=== PATIENT | female | born 1970 | race Caucasian/White ===

== ENCOUNTER 2017-04-04 21:36 | Observation (INO) | payer MEDICAID, OTHER ==
[~2017-04-04] VITALS: Ht 154.9 cm; Wt 66.3 kg
[~2017-04-04 21:36] MED LIST: ASPI81TA45 PO; FIORIC PO; NAPR-729 PO; TAMO10TA2 PO; TRAM-388 PO; TRAM50TA PO; ZOFR4TAB3 SL
[2017-04-04 21:46] VITALS: BP 144/80; PULSE 83; RESP 18; TEMP 98.3; O2SAT 96
[2017-04-04] MEDS ORDERED: SODIUM CHLORIDE 0.9% FLUSH 10 ML FLUSH IVF PRN (22:00)
[2017-04-04] MEDS ORDERED: ASPIRIN 81 MG CHEW TAB PO ONE (22:00)
--- NOTE | 2017-04-04 22:03 | PD ---
HPI Chief Complaint: Chest Pain Time Seen by Provider: 21:40 Travel History International Travel<30 days: No Contact w/Intl Traveler<30days: No Traveled to known affect area: No History of Present Illness HPI The patient is a 46-year-old female that has no history of coronary artery disease but does complain of chest pain for about 2 hours. She apparently had epigastric pain that was suspicious for cardiac chest pain when she went into [facility] in [facility] Monday. They wanted to do a stress test on her but she signed out AMA. Her chest pain is pleuritic and both sharp and pressure. It starts behind her left breast and goes up to the left shoulder and radiates up the left neck. It is associated with diaphoresis and nausea and she does feel slight shortness of breath. She does have a history of deep vein thrombosis in the right leg and did have an inferior vena cava filter. This filter broke down and they had to recover a portion of it which ended up in her right lung. It is no longer a functioning IVC filter. She denies any hemoptysis or fever. PFSH Past Medical History Cancer: Yes (breast) Chemotherapy: Yes (on tamoxifen) Diminished Hearing: No Deep Vein Thrombosis: Yes Kidney Stones: Yes Immunizations Current: Yes Radiation Therapy: Yes Tetanus Vaccination: < 5 Years Influenza Vaccination: No ?: Not LMP: 03/15/2017 Menopausal: Yes Past Surgical History Appendectomy: Yes Cholecystectomy: Yes Genitourinary Surgery: Yes (stents placed/removed ) Other Surgery: Yes (IVC FILTER - RENAL STENT) Social History Alcohol Use: No Tobacco Use: Yes (1/2 ppd) Substance Use: No Allergies-Medications (Allergen,Severity, Reaction): Coded Allergies: Compazine (Verified Allergy, Severe, Anaphylaxis, 04/04/17) Reglan (Verified Allergy, Severe, Anaphylaxis, 04/04/17) Toradol (Verified Allergy, Severe, Anaphylaxis, 04/04/17) Reported Meds & Prescriptions Reported Meds & Active Scripts Active Review of Systems Except as stated in HPI: all other systems reviewed are Neg Physical Exam Narrative GENERAL: The patient is alert, oriented 3 in moderate apparent distress with her chest pain. Her vital signs show blood pressure 144/80 but are otherwise normal. SKIN: Focused skin assessment warm/dry. No skin rash is seen. HEAD: Atraumatic. Normocephalic. EYES: Pupils equal and round. No scleral icterus. No injection or drainage. ENT: No nasal bleeding or discharge. Mucous membranes pink and moist. NECK: Trachea midline. No JVD. CARDIOVASCULAR: Regular rate and rhythm. No murmur appreciated. I cannot reproduce the chest pain by pressing on the chest wall. RESPIRATORY: No accessory muscle use. Clear to auscultation. Breath sounds equal bilaterally. GASTROINTESTINAL: Abdomen soft, non-tender, nondistended. Hepatic and splenic margins not palpable. MUSCULOSKELETAL: No obvious deformities. No clubbing. No cyanosis. No edema. NEUROLOGICAL: Awake and alert. No obvious cranial nerve deficits. Motor grossly within normal limits. Normal speech. PSYCHIATRIC: Appropriate mood and affect; insight and judgment normal. Data Data Last Documented VS Vital Signs Date Time Temp Pulse Resp B/P Pulse Ox O2 Delivery O2 Flow Rate FiO2 04/04/17 22:20 69 18 116/70 99 Room Air 04/04/17 21:46 98.3 Orders Electrocardiogram (04/04/17 21:56) B-Type Natriuretic Peptide (04/04/17 21:56) Ckmb (Isoenzyme) Profile (04/04/17 21:56) Complete Blood Count With Diff (04/04/17 21:56) Comprehensive Metabolic Panel (04/04/17 21:56) D-Dimer (04/04/17 21:56) Magnesium (Mg) (04/04/17 21:56) Prothrombin Time / Inr (Pt) (04/04/17 21:56) Act Partial Throm Time (Ptt) (04/04/17 21:56) Troponin I (04/04/17 21:56) Ecg Monitoring (04/04/17 21:56) Bilateral Bp Monitoring (04/04/17 21:56) Iv Access Insert/Monitor (04/04/17 21:56) Oximetry (04/04/17 21:56) Oxygen Administration (04/04/17 21:56) Aspirin Chew (Aspirin Chew) (04/04/17 22:00) Sodium Chloride 0.9% Flush (Ns Flush) (04/04/17 22:00) Nitroglycerin Sl (Nitrostat Sl) (04/04/17 22:00) Chest, Pa & Lat (04/04/17 21:56) Potassium Chloride (Kcl) (04/04/17 23:45) Labs Laboratory Tests Test 04/04/17 22:32 White Blood Count 8.1 TH/MM3 Red Blood Count 3.74 MIL/MM3 Hemoglobin 11.9 GM/DL Hematocrit 35.5 % Mean Corpuscular Volume 95.0 FL Mean Corpuscular Hemoglobin 31.8 PG Mean Corpuscular Hemoglobin 33.5 % Concent Red Cell Distribution Width 13.3 % Platelet Count 326 TH/MM3 Mean Platelet Volume 7.1 FL Neutrophils (%) (Auto) 60.6 % Lymphocytes (%) (Auto) 29.5 % Monocytes (%) (Auto) 6.6 % Eosinophils (%) (Auto) 2.7 % Basophils (%) (Auto) 0.6 % Neutrophils # (Auto) 5.0 TH/MM3 Lymphocytes # (Auto) 2.4 TH/MM3 Monocytes # (Auto) 0.5 TH/MM3 Eosinophils # (Auto) 0.2 TH/MM3 Basophils # (Auto) 0.0 TH/MM3 CBC Comment DIFF FINAL Differential Comment Prothrombin Time 10.8 SEC Prothromb Time International 1.0 RATIO Ratio Activated Partial 26.7 SEC Thromboplast Time D-Dimer Quantitative (PE/DVT) 0.50 MG/L FEU Sodium Level 144 MEQ/L Potassium Level 3.2 MEQ/L Chloride Level 109 MEQ/L Carbon Dioxide Level 26.5 MEQ/L Anion Gap 9 MEQ/L Blood Urea Nitrogen 7 MG/DL Creatinine 0.86 MG/DL Estimat Glomerular Filtration 70 ML/MIN Rate Random Glucose 102 MG/DL Calcium Level 8.8 MG/DL Magnesium Level 2.0 MG/DL Total Bilirubin 0.2 MG/DL Aspartate Amino Transf 15 U/L (AST/SGOT) Alanine Aminotransferase 22 U/L (ALT/SGPT) Alkaline Phosphatase 49 U/L Total Creatine Kinase 44 U/L Troponin I LESS THAN 0.02 NG/ML B-Type Natriuretic Peptide 23 PG/ML Total Protein 6.4 GM/DL Albumin 3.4 GM/DL MDM Medical Decision Making Medical Screen Exam Complete: Yes Emergency Medical Condition: Yes Medical Record Reviewed: Yes Interpretation(s) The EKG shows sinus rhythm with a rate of 80 and is completely normal. The chest x-ray is normal. The complete metabolic profile shows potassium 3.2 but is otherwise normal. The cardiac enzymes are normal and the BNP is normal. The d-dimer is normal. Differential Diagnosis Pleurisy, chest wall pain, esophageal pain, gastrointestinal pain, acute coronary syndrome, pulmonary embolus Narrative Course The patient appears to have pleurisy. She also has a different type of pain, a pressure pain and needs to have a stress test. She has not had a stress test before. The patient will be admitted to the chest pain center for a stress test. Procedures Procedure Narrative The nurses were unable to start an IV so I started an external jugular IV on the left. Diagnosis Primary Impression: Chest pain of unknown etiology Albin Ocampo MD Apr 04, 2017 22:03
[2017-04-04] MEDS: NITROGLYCERIN 0.4 MG SL 25 TABS/BTL SL SCH ×3 (22:05→22:10)
[2017-04-04 22:20] VITALS: BP 116/70; PULSE 69; RESP 18; O2SAT 99
[2017-04-04 22:44] LABS: BASOPHIL % 0.6 % (0.0-2.0); EOSINOPHIL # 0.2 TH/MM3 (0-0.4); EOSINOPHIL % 2.7 % (0.0-4.0); HEMATOCRIT 35.5 % (35.0-46.0); HEMO FLAGS DIFF FINAL; LYMPH % 29.5 % (9.0-44.0); LYMPHOCYTE # 2.4 TH/MM3 (1.0-4.8); MEAN CORPUSCULAR HEMOGLOBIN 31.8 PG (27.0-34.0); MEAN CORPUSCULAR HGB CONC 33.5 % (32.0-36.0); MONO % 6.6 % (0.0-8.0); NEUT % 60.6 % (16.0-70.0); PLATELET COUNT 326 TH/MM3 (150-450); RED BLOOD COUNT 3.74 MIL/MM3 (4.00-5.30); RED CELL DISTRIBUTION WIDTH 13.3 % (11.6-17.2); WHITE BLOOD COUNT 8.1 TH/MM3 (4.0-11.0)
[2017-04-04 22:56] LABS: CHLORIDE 109 MEQ/L (98-107); POTASSIUM 3.2 MEQ/L (3.5-5.1); SODIUM (NA) 144 MEQ/L (136-145)
[2017-04-04 22:59] LABS: ANION GAP 9 MEQ/L (5-15); BICARBONATE 26.5 MEQ/L (21.0-32.0); BLOOD UREA NITROGEN 7 MG/DL (7-18)
[2017-04-04 23:01] LABS: APTT (PATIENT) 26.7 SEC (24.3-30.1); PROTHROMBIN TIME - PATIENT 10.8 SEC (9.8-11.6)
[2017-04-04 23:02] LABS: ALT (GPT) 22 U/L (10-53); AST (GOT) 15 U/L (15-37)
[2017-04-04 23:03] LABS: GLOMERULAR FILTRATION RATE 70 ML/MIN (>89)
[2017-04-04 23:04] LABS: TOTAL BILIRUBIN ADULT 0.2 MG/DL (0.2-1.0)
[2017-04-04 23:05] LABS: ALKALINE PHOSPHATASE 49 U/L (45-117)
--- NOTE | 2017-04-04 23:05 | RADRPT ---
EXAM DATE/TIME: 04/04/2017 22:43 [facility] COMPARISON: No previous studies available for comparison. INDICATIONS : Patient states chest pain started two hours ago. MEDICAL HISTORY : Hypertension. SURGICAL HISTORY : None. ENCOUNTER: Initial ACUITY: 1 day PAIN SCORE: 10/10 LOCATION: Bilateral chest FINDINGS: PA and lateral views of the chest demonstrate the lungs to be symmetrically aerated without evidence of mass, infiltrate or effusion. The cardiomediastinal contours are unremarkable. Osseous structure s are intact. Clips are seen in the right upper quadrant. CONCLUSION: Normal examination. Lacho Saavedra MD on April 04, 2017 at 23:03 Board Certified Radiologist. This report was verified electronically.
[2017-04-04 23:06] LABS: CREATINE KINASE 44 U/L (26-192)
[2017-04-04] MEDS ORDERED: MORPHINE SULFATE 4 MG/ML INJ IV PUSH ONE (23:45)
[2017-04-04] MEDS ORDERED: POTASSIUM CHLORIDE 20 MEQ CONTROLLED RELEASE TAB PO ONE (23:45)
[2017-04-04] MEDS ORDERED: ONDANSETRON HCL 4 MG/2 ML VIAL IV ONE (23:45)
[2017-04-04] MEDS ORDERED: MORPHINE SULFATE 8 MG/ML INJ IV PUSH ONE (23:45)
[2017-04-04 23:50] VITALS: BP 99/54; PULSE 59; RESP 16; O2SAT 99
[2017-04-05] VITALS (7 sets, daily range): BP systolic 98–116; BP diastolic 54–76; PULSE 52–65; RESP 16–18; TEMP 97.2–97.4; O2SAT 92–99
[2017-04-05] MEDS ORDERED: SODIUM CHLORIDE 0.9% FLUSH 10 ML FLUSH IV FLUSH PRN
[2017-04-05] MEDS ORDERED: ACETAMINOPHEN 500 MG CPLT PO PRN
[2017-04-05] MEDS ORDERED: ONDANSETRON HCL 4 MG/2 ML VIAL IV PRN
[2017-04-05] MEDS ORDERED: ACETAMINOPHEN/HYDROcodone 325 MG/7.5 MG TAB PO PRN
[2017-04-05] MEDS ORDERED: MORPHINE SULFATE 4 MG/ML INJ IV PRN
[2017-04-05] MEDS ORDERED: LORazepam 2 MG/ML VIAL IV PUSH ONE (04:15)
[2017-04-05] MEDS ORDERED: HYDROmorphone HCL PF 1 MG/ML VIAL IV PUSH ONE (04:15)
[2017-04-05 04:57] LABS: CREATINE KINASE 85 U/L (26-192)
[2017-04-05 08:29] LABS: CREATINE KINASE 44 U/L (26-192)
[2017-04-05] MEDS: MORPHINE SULFATE 8 MG/ML INJ IV PUSH PRN ×2 (09:00→12:34)
[2017-04-05] MEDS ORDERED: SODIUM CHLORIDE 0.9% FLUSH 10 ML FLUSH SCH (09:00)
--- NOTE | 2017-04-05 09:16 | EKG ---
Date Performed: 04/04/2017 Time Performed: 23:58:05 PTAGE: 46 years EKG: Sinus rhythm NONSPECIFIC T-WAVE ABNORMALITY BORDERLINE ECG PREVIOUS TRACING : 04/04/2017 21.43 DOCTOR: Carl Oconnor Interpretating Date/Time 04/05/2017 09:15:00
--- NOTE | 2017-04-05 09:26 | EKG ---
Date Performed: 04/04/2017 Time Performed: 21:43:45 PTAGE: 46 years EKG: Sinus rhythm NORMAL ECG NO PREVIOUS TRACING DOCTOR: Carl Oconnor Interpretating Date/Time 04/05/2017 09:25:32
--- NOTE | 2017-04-05 10:51 | EKG ---
Date Performed: 04/05/2017 Time Performed: 03:05:48 PTAGE: 46 years EKG: SINUS BRADYCARDIA LOW QRS VOLTAGE IN PRECORDIAL LEADS BORDERLINE ECG PREVIOUS TRACING : 04/04/2017 23.58 DOCTOR: Carl Oconnor Interpretating Date/Time 04/05/2017 10:50:20
[2017-04-05 10:54] LABS: BLOOD, URINE LARGE (NEG); GLUCOSE,URINE NEG (NEG); KETONE, URINE NEG (NEG); NITRITE,URINE NEG (NEG); PH, URINE 5.5 (5.0-8.5)
[2017-04-05 11:10] LABS: METHOD OF COLLECTION CLEAN CATCH; URINE COLOR LIGHT-BROWN (YELLW/STRAW)
[2017-04-05 11:12] LABS: RBC, URINE INNUM /hpf (0-3)
[2017-04-05 11:13] LABS: BACTERIA, URINE FEW /hpf; COMMENT (UR) CULTURE INDICATED; CULTURE IF INDICATED CULTURE INDICATED
--- NOTE | 2017-04-05 11:49 | HHI.HP ---
HPI Primary Care Physician Unknown Admission Diagnosis chest pain unknown etiology Diagnoses: Chief Complaint: Left-sided chest pain History of Present Illness Patient is a 46-year-old female with an history of breast cancer who is coming to the hospital complaining of left-sided chest discomfort which she describes as "pulling". It is radiating into the shoulder and into her back and has been going on for 4 days, worse with movement and is associated with diaphoresis and nausea. Patient does feel some shortness of breath. She says she has had no relief from any of her symptoms other than with IV morphine. Patient was in the emergency room several days ago at [facility] and recommended for stress test which she refused and signed out against we'll advise. Here she has been tearful and complaining that no one has been evaluating her while the doctor and the nurses are in the room evaluating her. The patient had an EKG which shows normal sinus rhythm and sensory is normal. I did review both the chest x-ray the EKG. This chest pain is not on exam. For these as the patient was admitted for observation of chest pain center Review of Systems Constitutional: DENIES: Diaphoretic episodes, Fatigue, Fever, Weight gain, Weight loss, Chills, Dizziness, Change in appetite, Night Sweats Endocrine: DENIES: Abnorml menstrual pattern, Heat/cold intolerance, Polydipsia , Polyuria, Polyphagia Eyes: DENIES: Blurred vision, Diplopia, Eye inflammation, Eye pain, Vision loss , Photosensitivity, Double Vision Ears, nose, mouth, throat: DENIES: Tinnitus, Hearing loss, Vertigo, Nasal discharge, Oral lesions, Throat pain, Hoarseness, Ear Pain, Running Nose, Epistaxis, Sinus Pain, Toothache, Odynophagia Respiratory: DENIES: Apneas, Cough, Snoring, Wheezing, Hemoptysis, Sputum production, Shortness of breath Cardiovascular: COMPLAINS OF: Chest pain, Palpitations, Dyspnea on Exertion Gastrointestinal: DENIES: Abdominal pain, Black stools, Bloody stools, Constipation, Diarrhea, Nausea, Vomiting, Difficulty Swallowing, Anorexia Genitourinary: COMPLAINS OF: Hematuria, DENIES: Abnormal vaginal bleeding, Dysmenorrhea, Dyspareunia, Sexual dysfunction, Urinary frequency, Urinary incontinence, Urgency, Dysuria, Nocturia, Vaginal discharge Musculoskeletal: DENIES: Joint pain, Muscle aches, Stiffness, Joint Swelling, Back pain, Neck pain Integumentary: DENIES: Abnormal pigmentation, Pruritus, Rash, Nail changes, Breast masses, Breast skin changes, Nipple discharge Hematologic/lymphatic: DENIES: Bruising, Lymphadenopathy Immunologic/allergic: DENIES: Eczema, Urticaria Neurologic: DENIES: Abnormal gait, Headache, Localized weakness, Paresthesias, Seizures, Speech Problems, Tremor, Poor Balance Psychiatric: COMPLAINS OF: Anxiety, DENIES: Confusion, Mood changes, Depression, Hallucinations, Agitation, Suicidal Ideation, Homicidal Ideation, Delusions Past Family Social History Past Medical History Breast cancer DVT Kidney stones Past Surgical History . IVC filter Reported Medications Reviewed in the medical record, denies Allergies: Coded Allergies: Compazine (Verified Allergy, Severe, Anaphylaxis, 04/04/17) Reglan (Verified Allergy, Severe, Anaphylaxis, 04/04/17) Toradol (Verified Allergy, Severe, Anaphylaxis, 04/04/17) Active Ordered Medications Reviewed in the medical record Family History Family history of hypertension Social History No alcohol dependency, smokes half a pack a day, Physical Exam Vital Signs Vital Signs Date Time Temp Pulse Resp B/P Pulse Ox O2 Delivery O2 Flow Rate FiO2 04/05/17 10:33 20 04/05/17 10:02 94 21 04/05/17 08:00 97.2 59 16 98/54 92 04/05/17 01:13 55 04/05/17 01:00 97.4 52 18 112/76 93 04/05/17 00:12 99 21 04/05/17 00:02 16 04/04/17 23:50 59 16 99/54 99 Room Air 04/04/17 22:20 69 18 116/70 99 Room Air 04/04/17 22:20 69 18 116/70 99 Room Air 04/04/17 22:11 16 04/04/17 21:52 83 18 96 Room Air 04/04/17 21:46 98.3 83 18 144/80 96 Physical Exam GENERAL: This is a well-nourished, well-developed patient, tearful and complaining of chest pain SKIN: No rashes, ecchymoses or lesions. Cool and dry. HEAD: Atraumatic. Normocephalic. No temporal or scalp tenderness. EYES: Pupils equal round and reactive. Extraocular motions intact. No scleral icterus. No injection or drainage. ENT: Nose without bleeding, purulent drainage or septal hematoma. Throat without erythema, tonsillar hypertrophy or exudate. Uvula midline. Airway patent. NECK: Trachea midline. No JVD or lymphadenopathy. Supple, nontender, no meningeal signs. CARDIOVASCULAR: Regular rate and rhythm without murmurs, gallops, or rubs. RESPIRATORY: Clear to auscultation. Breath sounds equal bilaterally. No wheezes , rales, or rhonchi. GASTROINTESTINAL: Abdomen soft, non-tender, nondistended. No hepato-splenomegaly , or palpable masses. No guarding. MUSCULOSKELETAL: Extremities without clubbing, cyanosis, or edema. No joint tenderness, effusion, or edema noted. No calf tenderness. Negative Homans sign bilaterally. NEUROLOGICAL: Awake and alert. Cranial nerves II through XII intact. Motor and sensory grossly within normal limits. Five out of 5 muscle strength in all muscle groups. Normal speech. Laboratory Laboratory Tests Test 04/04/17 04/05/17 04/05/17 04/05/17 22:32 02:35 07:30 10:30 White Blood Count 8.1 Red Blood Count 3.74 Hemoglobin 11.9 Hematocrit 35.5 Mean Corpuscular Volume 95.0 Mean Corpuscular Hemoglobin 31.8 Mean Corpuscular Hemoglobin 33.5 Concent Red Cell Distribution Width 13.3 Platelet Count 326 Mean Platelet Volume 7.1 Neutrophils (%) (Auto) 60.6 Lymphocytes (%) (Auto) 29.5 Monocytes (%) (Auto) 6.6 Eosinophils (%) (Auto) 2.7 Basophils (%) (Auto) 0.6 Neutrophils # (Auto) 5.0 Lymphocytes # (Auto) 2.4 Monocytes # (Auto) 0.5 Eosinophils # (Auto) 0.2 Basophils # (Auto) 0.0 CBC Comment DIFF FINAL Differential Comment Prothrombin Time 10.8 Prothromb Time International 1.0 Ratio Activated Partial 26.7 Thromboplast Time D-Dimer Quantitative (PE/DVT) 0.50 Sodium Level 144 Potassium Level 3.2 Chloride Level 109 Carbon Dioxide Level 26.5 Anion Gap 9 Blood Urea Nitrogen 7 Creatinine 0.86 Estimat Glomerular Filtration 70 Rate Random Glucose 102 Calcium Level 8.8 Magnesium Level 2.0 Total Bilirubin 0.2 Aspartate Amino Transf 15 (AST/SGOT) Alanine Aminotransferase 22 (ALT/SGPT) Alkaline Phosphatase 49 Total Creatine Kinase 44 85 44 Troponin I LESS THAN 0.02 LESS THAN 0.02 LESS THAN 0.02 B-Type Natriuretic Peptide 23 Total Protein 6.4 Albumin 3.4 Beta HCG, Qualitative LESS THAN 1 Urine Collection Type CLEAN CATCH Urine Color LIGHT-BROWN Urine Turbidity CLOUDY Urine pH 5.5 Urine Specific Orange 1.020 Urine Protein TRACE Urine Glucose (UA) NEG Urine Ketones NEG Urine Occult Blood LARGE Urine Nitrite NEG Urine Bilirubin NEG Urine Leukocyte Esterase TRACE Urine RBC INNUM Urine WBC 9-14 Urine Squamous Epithelial 6-8 Cells Urine Bacteria FEW Microscopic Urinalysis Comment CULTURE INDICATED Date/Time Procedure Status Source Growth 04/05/17 10:30 Urine Culture Received Urine Clean Catch Pending Result Diagram: 04/04/172 04/04/172231 Imaging Last Impressions Chest X-Ray 04/04/172155 Signed Impressions: Service Date/Time: Tuesday, April 04, 2017 22:43 - CONCLUSION: Normal examination. Lacho Saavedra MD Assessment and Plan Problem List: (1) Chest pain of unknown etiology ICD Code: R07.89 Status: Acute Plan: Likely noncardiac. EKG unremarkable for acute cardiac injury on my review Follow up stress test Continue with pain control and risk assessment Continue telemetry, currently no events Follow-up CT abdomen pelvis and chest to rule out pulmonary embolism and stone versus GI etiology of atypical chest pain Add Protonix (2) UTI (urinary tract infection) ICD Code: N39.0 Status: Acute Plan: Continue IV Rocephin, rule out stone (3) Hypokalemia ICD Code: E87.6 Status: Acute Plan: Replace and follow trend Assessment and Plan Plan of care determined by Hospital course Code Status full code Maribel Sanchez MD Apr 05, 2017 11:49
[2017-04-05 11:51] LABS: POTASSIUM 3.8 MEQ/L (3.5-5.1)
[2017-04-05 11:54] LABS: BICARBONATE 26.9 MEQ/L (21.0-32.0)
[2017-04-05] MEDS ORDERED: PANTOPRAZOLE SOD 40 MG DELAYED RELEASE TAB PO SCH (12:00)
[2017-04-05] MEDS ORDERED: cefTRIAXone INJ 1,000 MG in SODIUM CHLORIDE 0.9% INJ 100 ML IV SCH (12:00)
[2017-04-05] MEDS ORDERED: IOHEXOL 350 MG/ML 10 ML VIAL (for RAD DIAG) IV ONE (13:04)
--- NOTE | 2017-04-05 13:18 | RADRPT ---
EXAM DATE/TIME: 04/05/2017 12:37 [facility] COMPARISON: No previous studies available for comparison. INDICATIONS : Left chest pain. Short of breath. IV CONTRAST: 75 cc Omnipaque 350 (iohexol) IV RADIATION DOSE: 5.05 CTDIvol (mGy) MEDICAL HISTORY : Carcinoma, breast. Renal calculi. Deep venous thrombosis. SURGICAL HISTORY : Appendectomy. Cholecystectomy. ENCOUNTER: Initial ACUITY: 4 - 6 days PAIN SCALE: 9/10 LOCATION: Left chest TECHNIQUE: Volumetric scanning of the chest was performed using a pulmonary embolism protocol MIP images were re constructed. Using automated exposure control and adjustment of the mA and/or kV according to patien t size, radiation dose was kept as low as reasonably achievable to obtain optimal diagnostic quality images. DICOM format image data is available electronically for review and comparison. FINDINGS: PULMONARY ARTERIES: No filling defects are seen in the pulmonary arteries through the segmental level. LUNGS: A few mild scattered interstitial infiltrates are noted in both posterior lower lungs. PLEURAE: There is no pleural thickening or pleural effusion. MEDIASTINUM: There is good visualization of the great vessels of the middle mediastinum. No evidence of mediastin al or hilar adenopathy/mass. MUSCULOSKELETAL: Within normal limits for patient age. MISCELLANEOUS: The visualized upper abdominal organs demonstrate no acute abnormality. There does appear to be a sub centimeter cyst in the left lobe of the liver. There may be a few tiny nodules in the thyroid gland. CONCLUSION: 1. No evidence of pulmonary embolism. 2. Mild scattered interstitial infiltrates in both lung bases. Adan Norris MD on April 05, 2017 at 13:13 Board Certified Radiologist. This report was verified electronically.
[2017-04-05] MEDS ORDERED: REGADENOSON INJ 0.4 MG/5 ML SYR IV ONE (13:20)
--- NOTE | 2017-04-05 13:50 | RADRPT ---
EXAM DATE/TIME: 04/05/2017 12:37 [facility] COMPARISON: CT ABDOMEN & PELVIS W/O CONTRAST, May 21, 2015, 8:04. INDICATIONS : Left abdominal pain. Evaluate for renal stone. ORAL CONTRAST: No oral contrast ingested. RADIATION DOSE: 9.95 CTDIvol (mGy) MEDICAL HISTORY : Carcinoma, breast. Renal calculi. Deep venous thrombosis. SURGICAL HISTORY : Appendectomy. Cholecystectomy. ENCOUNTER: Initial ACUITY: 4 - 6 days PAIN SCALE: 7/10 LOCATION: Left abdomen TECHNIQUE: Volumetric scanning of the abdomen and pelvis was performed. Using automated exposure control and ad justment of the mA and/or kV according to patient size, radiation dose was kept as low as reasonably achievable to obtain optimal diagnostic quality images. DICOM format image data is available electro nically for review and comparison. The lack of IV contrast limits the diagnosis for certain organ pa thology. FINDINGS: LOWER LUNGS: The visualized lower lungs are clear. LIVER: Homogeneous density without lesion. There is no dilation of the biliary tree. No gallbladder, surgi sunshine removed. There is a stable 1.3 cm left hepatic cyst.. SPLEEN: Normal size without lesion. PANCREAS: Within normal limits. KIDNEYS: Normal in size and shape. There is no mass, stone, or hydronephrosis. ADRENAL GLANDS: Stable small adrenal adenomas. No significant change. VASCULAR: There is no aortic aneurysm. IVC filter in place. No change BOWEL/MESENTERY: The stomach, small bowel, and colon demonstrate no acute abnormality. There is no free intraperitone al air or fluid. ABDOMINAL WALL: Within normal limits. RETROPERITONEUM: There is no lymphadenopathy. BLADDER: No wall thickening or mass. REPRODUCTIVE: Within normal limits. INGUINAL: There is no lymphadenopathy or hernia. MUSCULOSKELETAL: Within normal limits for patient age. CONCLUSION: 1. No evidence of calcified renal stones or hydronephrosis. 2. No new or significant changes compared to the prior exam. 3. Stable 1.3 cm left hepatic cyst. 4. Stable bilateral tiny adrenal adenomas. Adan Norris MD on April 05, 2017 at 13:42 Board Certified Radiologist. This report was verified electronically.
--- NOTE | 2017-04-05 14:37 | RADRPT ---
EXAM DATE/TIME: 04/05/2017 13:12 [facility] COMPARISON: No previous studies available for comparison. INDICATIONS : Mid chest pain with shortness of breath, nausea and diaphoresis for one day. Angina. DOSE: 26.1 mCi Tc99m Myoview at stress. 8.7 mCi Tc99m Myoview at rest. 0.4 mg Lexiscan STRESS SYMPTOMS: Chest pressure. EJECTION FRACTION: 67% MEDICAL HISTORY : Carcinoma, breast. SURGICAL HISTORY : Appendectomy. Cholecystectomy. ENCOUNTER: Initial ACUITY: 1 day PAIN SCALE: 6/10 LOCATION: Midsternal chest TECHNIQUE: The patient underwent pharmacologic stress with infusion of prescribed dose. Continuous ECG tracing was monitored during stress. Gated SPECT imaging was performed after stress and conventional SPECT i maging was performed at rest. The examination was performed on a SPECT/CT scanner, both attenuation and non-corrected datasets were reviewed. FINDINGS: DISTRIBUTION: The maximum perfused segment at stress is in the septal wall. PERFUSION STUDY: The pattern of perfusion at stress is within normal limits. There is however a fixed defect involving the apex on the stress and rest images. GATED STUDY: There is intact wall motion and thickening without hypokinetic or dyskinetic segments. CONCLUSION: 1. Fixed defect involving the apex on the rest and stress images. 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 2. No definite ischemic myocardial changes are demonstrated. RISK CATEGORY: low Adan Norris MD on April 05, 2017 at 14:32 Board Certified Radiologist. This report was verified electronically.
[2017-04-05] MEDS ORDERED: INDO50CA PO (15:01)
[2017-04-05] MEDS ORDERED: CIPR-9 PO (15:01)
--- NOTE | 2017-04-05 15:01 | HHI.DCPOC ---
Discharge Care Plan Diagnosis: (1) Chest pain of unknown etiology (2) UTI (urinary tract infection) Goals to Promote Your Health * To prevent worsening of your condition and complications * To maintain your health at the optimal level Directions to Meet Your Goals Take your medications as prescribed Follow your dietary instruction Follow activity as directed Keep your appointments as scheduled Take your immunizations and boosters as scheduled If your symptoms worsen call your PCP, if no PCP go to Urgent Care Center or Emergency Room Smoking is Dangerous to Your Health. Avoid second hand smoke Call the 24-hour hour crisis hotline for domestic abuse at James Ocampo Apr 05, 2017 15:01
--- NOTE | 2017-04-07 13:25 | TR ---
Date Performed: 04/05/2017 Time Performed: 13:34:38 DOCTOR: Warren Kiran DRUG LIST: CLINICAL HISTORY: ANGINA REASON FOR TEST: Angina REASON FOR ENDING: OBSERVATION: CONCLUSION: Lexiscan stress test was performed under standard four minute protocol. Radionuclid e was injected one minute prior to ending the test. No electrocardiographic abormalities were present to suggest ischemia. Nuclear imaging and interpretation are pending. COMMENTS:
== END 2017-04-05 16:50 | disposition home or self-care (01) ==
LOC: PHED 21:36 → INTOOBSV 23:45 → PHEDA 23:45 → PH3A 04-05 00:54
PROVIDERS: ADMIT Hospitalist; ATTEND Hospitalist
DX: R07.89 Other chest pain (principal); N39.0 Urinary tract infection, site not specified; E87.6 Hypokalemia; R11.0 Nausea; R61 Generalized hyperhidrosis; R06.02 Shortness of breath; R06.00 Dyspnea, unspecified; R00.2 Palpitations; R31.9 Hematuria, unspecified; C50.919 Malignant neoplasm of unspecified site of unspecified female breast; D35.00 Benign neoplasm of unspecified adrenal gland; R10.13 Epigastric pain; I10 Essential (primary) hypertension; I20.9 Angina pectoris, unspecified; K76.89 Other specified diseases of liver; F17.200 Nicotine dependence, unspecified, uncomplicated; F41.9 Anxiety disorder, unspecified; Z79.899 Other long term (current) drug therapy; Z86.718 Personal history of other venous thrombosis and embolism
CPT/HCPCS: 71020; 71275; 74176; 78452; 80048; 80053; 81001; 82550; 83690; 83735; 83880; 84484; 84703; 85025; 85379; 85610; 85730; 87086; 93005; 93017; 99285; A9502; G0378; J0696; J1170; J2060; J2270; J2405; J2785; Q9967